=== PATIENT | female | born 1940 | race Caucasian/White ===

== ENCOUNTER 2016-09-06 03:00 | Emergency (ER) | payer MEDICARE, OTHER ==
[2016-09-06] MEDS ORDERED: Aspirin Low Dose CHEW TAB* 81 MG PO ONE (03:18)
[2016-09-06 03:34] LABS: Hematocrit 37 % (35-47); Hemoglobin 12.2 g/dl (12.0-16.0); Mean Corpuscular HGB Conc 33 g/dl (31-36); Mean Corpuscular Hemoglobin 31 pg (27-31); Mean Corpuscular Volume 93 fL (80-97); Mean Platelet Volume 10 um3 (7.4-10.4); Red Blood Count 4.01 10^6/ul (4.0-5.4); Red Cell Distribution Width 14 % (10.5-15); White Blood Count 5.1 10^3/ul (3.5-10.8)
--- NOTE | 2016-09-06 03:36 | ED ---
Marianna Smith Anna, scribed for Elier Miller MD on 09/06/16 at 0303 . HPI Chest Pain - HPI Summary HPI Summary: Patient is a 76 y/o female BIBA to [facility] presenting with sudden onset of constant mid-sternal CP that began at 0130 this morning. She reports that the pain radiates to her jaw. She was given nitroglycerin and Aspirin MANAGER ONLINE by EMS, and the pain has now resolved. Her history is significant for angina, but she has not had CP of this severity before. - History of Current Complaint Hx Obtained From: Patient, Family/Pigment Processor - Accompanied by , EMS - Allergy/Home Medications Allergies/Adverse Reactions: Allergies Allergy/AdvReac Type Severity Reaction Status Date / Time Ciprofloxacin [From Cipro] Allergy Severe Palpitation Verified 09/28/12 14:24 s Morphine Allergy Vomiting Verified 09/06/16 03:15 Procaine [From Novocain] Allergy Unknown Verified 03/04/16 12:13 Reaction Details Sulfa Antibiotics Allergy Nausea Verified 09/06/16 03:15 PMH/Surg Hx/FS Hx/Imm Hx Endocrine/Hematology History: Reports: Hx Thyroid Disease Denies: Hx Diabetes Cardiovascular History: Reports: Hx Angina Denies: Hx Coronary Artery Disease, Hx Hypercholesterolemia, Hx Hypertension , Hx Myocardial Infarction, Hx Pacemaker/ICD, Hx Valvular Heart Disease Respiratory History: Denies: Hx Asthma, Hx Chronic Obstructive Pulmonary Disease (COPD) GI History: Denies: Hx Ulcer Musculoskeletal History: Reports: Hx Osteoporosis Sensory History: Denies: Hx Hearing Aid Psychiatric History: Denies: Hx Panic Disorder - Cancer History Cancer Type, 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 Hx Chemotherapy: No Hx Radiation Therapy: No - Surgical History Surgery Procedure, Year, and Place: TONSILECTOMY AGE 19 , 1974 KIDNEY SURGERY , 1994 RT FOOT LIGAMENT REPAIR, CATARACTS BILAT 2010 Infectious Disease History: Denies: Hx Clostridium Difficile, Hx Hepatitis, Hx Human Immunodeficiency Virus (HIV), Hx of Known/Suspected MRSA, Hx Shingles, Hx Tuberculosis - Family History Known Family History: Positive: Cardiac Disease - Social History Occupation: Retired Lives: With Family Hx Substance Use: No Substance Use Type: Reports: None Review of Systems Positive: Chest Pain - resolved Positive: Arthralgia - Jaw, resolved All Other Systems Reviewed And Are Negative: Yes Physical Exam Triage Information Reviewed: Yes Vital Signs On Initial Exam: Temp Pulse Resp BP Pulse Ox 98.4 F 63 13 129/101 100 09/06/16 03:08 09/06/16 03:08 09/06/16 03:08 09/06/16 03:08 09/06/16 03:08 Vital Signs Reviewed: Yes Appearance: Positive: Well-Appearing, No Pain Distress, Thin Skin: Positive: Warm Head/Face: Positive: Normal Head/Face Inspection Eyes: Positive: SELENE ENT: Positive: Hearing grossly normal Neck: Positive: Supple Respiratory/Lung Sounds: Positive: Clear to Auscultation, Breath Sounds Present Cardiovascular: Positive: RRR Abdomen Description: Positive: Nontender, Soft Bowel Sounds: Positive: Present Musculoskeletal: Positive: Strength/ROM Intact Neurological: Positive: Alert, Oriented to Person Place, Time Psychiatric: Positive: Affect/Mood Appropriate Diagnostics - Vital Signs Vital Signs Temp Pulse Resp BP Pulse Ox 09/06/16 03:08 98.4 F 63 13 129/101 100 - Laboratory Result Diagrams: 09/06/16 03:26 09/06/16 03:26 Lab Statement: Any lab studies that have been ordered have been reviewed, and results considered in the medical decision making process. - Radiology CXR Xray Interpretation: No Acute Changes Radiology Interpretation Completed By: ED Physician - EKG 0301 Cardiac Rate: NL EKG Rhythm: Sinus Rhythm ST Segment: Non-Specific - Non-specific T abnormalities Ectopy: None Re-Evaluation - Re-Evaluation First Eval Re-Evaluation Time: 07:04 - pt remains pain free, trop 0 x 2 will d/c f/u pcp Change: Improved Chest Pain Course/Dx - Course Assessment/Plan: Patient is a 76 y/o female BIBA to [facility] presenting with mid- sternal CP that began at 0130 this morning. She reports that the pain radiates to her jaw. She was given nitroglycerin and Aspirin MANAGER ONLINE by EMS, and the pain has now resolved. Her history is significant for angina, but she has not had CP of this severity before. Labs reveal Plt count of 106, BUN/Creatinine ratio of 30.6, and protein of 6.2. Initial troponin is 0.00. Second troponin is 0.00. Patient will be discharged home with follow up from her doctor. - Diagnoses Provider Diagnoses: Chest pain Discharge - Discharge Plan Condition: Stable Disposition: HOME Patient Education Materials: Chest Pain (ED) Referrals: Corinne Hudson MD [Primary Care Provider] - Additional Instructions: Follow up with primary care physician within 48 hours. Return to the emergency department for changing or worsening symptoms. The documentation as recorded by the Marianna pascual Anna accurately reflects the service I personally performed and the decisions made by , Elier Miller MD.
[2016-09-06 03:53] LABS: Albumin 3.6 g/dL (3.2-5.2); BUN/Creatinine Ratio 30.6 (8-20); Calcium 8.8 mg/dL (8.6-10.3); EGFR Non-African American 93.3 (>60); Globulin 2.6 g/dL (2-4); Potassium 3.6 mmol/L (3.5-5.0); Total Bilirubin 0.5 mg/dL (0.2-1.0); Total Protein 6.2 g/dL (6.4-8.9)
[2016-09-06 05:15] LABS: Urine Bilirubin Negative (Negative); Urine Glucose Negative (Negative); Urine Nitrite Negative (Negative)
[2016-09-06 07:08] VITALS: BP 106/59
--- NOTE | 2016-09-06 07:25 | RAD ---
INDICATION: Chest pain. COMPARISON: Comparison is made with a prior chest x-ray study from September 15, 2004. TECHNIQUE: Dual-energy PA and lateral views of the chest were obtained. FINDINGS: The heart is within normal limits in size. Mediastinal and hilar contours appear within normal limits. The lungs are hyperinflated and clear. No pleural effusion or pneumothorax is seen. IMPRESSION: FINDINGS SUGGESTIVE OF COPD, NO EVIDENCE FOR ACUTE FINDING.
== END 2016-09-06 07:11 | disposition home or self-care (01) ==
LOC: ED 03:00
DX: R07.9 Chest pain, unspecified (principal); Z88.5 Allergy status to narcotic agent; Z88.2 Allergy status to sulfonamides; Z88.1 Allergy status to other antibiotic agents
CPT/HCPCS: 36415; 71020; 80053; 81003; 83605; 84484; 85025; 93005; 99283

== ENCOUNTER 2017-04-10 08:50 | Emergency (ER) | payer OTHER ==
--- NOTE | 2017-04-10 08:55 | UC ---
Complaint Female HPI - HPI Summary HPI Summary: 77 YEAR OLD FEMALE PRESENTS WITH COMPLAINS URINARY FREQUENCY AND URGENCY. - History Of Current Complaint Stated Complaint: URINARY ISSUE Time Seen by Provider: 04/10/17 08:54 Hx Obtained From: Patient Onset/Duration: Sudden Onset Timing: Constant Severity Initially: Moderate Severity Currently: Moderate - Allergies/Home Medications Allergies/Adverse Reactions: Allergies Allergy/AdvReac Type Severity Reaction Status Date / Time Ciprofloxacin [From Cipro] Allergy Severe Palpitation Verified 12/08/16 13:20 s Codeine Allergy Dizziness Verified 04/10/17 08:57 Doxycycline Allergy Unknown Verified 12/08/16 13:20 Reaction Details Moxifloxacin [From Avelox] Allergy Palpitation Verified 04/10/17 08:57 s Procaine [From Novocain] Allergy Palpitation Verified 04/10/17 08:57 s Raloxifene [From Evista] Allergy Leg Cramps Verified 04/10/17 08:57 Morphine AdvReac Vomiting Verified 04/10/17 08:57 Risedronate [From Actonel] AdvReac Abdominal Verified 04/10/17 08:57 Pain Sulfa Antibiotics AdvReac Nausea Verified 04/10/17 08:57 Home Medications: Home Medications Metoprolol Tartrate TAB* [Lopressor TAB*] 12.5 mg PO DAILY 04/10/17 [History Confirmed 04/10/17] PMH/Surg Hx/FS Hx/Imm Hx Previously Healthy: Yes - Surgical History Surgical History: Yes Surgery Procedure, Year, and Place: TONSILECTOMY AGE 19 , 1974 KIDNEY SURGERY STONE, 1994 RT FOOT LIGAMENT REPAIR, CATARACTS BILAT 2010 - Family History Known Family History: Positive: Cardiac Disease - Social History Alcohol Use: None Alcohol Amount: 1-2 glasses of wine Substance Use Type: None Smoking Status (MU): Never Smoked Tobacco Have You Smoked in the Last Year: No Review of Systems Constitutional: Negative Skin: Negative Eyes: Negative ENT: Negative Respiratory: Negative Cardiovascular: Negative Gastrointestinal: Negative Genitourinary: Frequency, Urgency Motor: Negative Neurovascular: Negative Musculoskeletal: Negative Neurological: Negative Psychological: Negative All Other Systems Reviewed And Are Negative: Yes Physical Exam Triage Information Reviewed: Yes Appearance: Well-Appearing Eye Exam: Normal ENT Exam: Normal Dental Exam: Normal Neck exam: Normal Neck: Positive: 1 Respiratory Exam: Normal Cardiovascular Exam: Normal Abdominal Exam: Normal Bowel Sounds: Positive: Present Musculoskeletal Exam: Normal Neurological Exam: Normal Psychological Exam: Normal Skin Exam: Normal Complaint Female Dx - Differential Dx/Diagnosis Provider Diagnoses: UTI Discharge - Discharge Plan Condition: Stable Disposition: HOME Prescriptions: Nitrofurantoin Monohyd Macro [Macrobid] 100 mg PO BID #[id number] cap Patient Education Materials: Urinary Tract Infection in Women (ED) Referrals: Corinne Hudson MD [Primary Care Provider] -
[2017-04-10 09:07] VITALS: BP 128/47
== END 2017-04-10 09:26 | disposition home or self-care (01) ==
LOC: UCEAST 08:50
DX: N39.0 Urinary tract infection, site not specified (principal); Z88.3 Allergy status to other anti-infective agents; Z88.5 Allergy status to narcotic agent; Z88.2 Allergy status to sulfonamides
CPT/HCPCS: 81003; 87077; 87086; 87186; 99212; G0463